=== PATIENT | male | born 1990 | race Caucasian/White ===

== ENCOUNTER 2020-07-02 20:31 | Emergency (ER) | payer BC, OTHER ==
[~2020-07-02] VITALS: Ht 182.9 cm; Wt 88.6 kg
[2020-07-02] MEDS ORDERED: FLUORESCEIN (FLUOR-I-STRIPS) 1 MG STRP ONE (20:49)
[2020-07-02] MEDS ORDERED: TETRACAINE 0.5% OPHTH SOLN 4 ML BTL (SINGLE DOSE ONLY) OP ONE (21:00)
--- NOTE | 2020-07-02 21:12 | NUR ---
visual acuity performed, with glasses pt 20/20 left, right, and bilateral
[2020-07-02] MEDS ORDERED: CEFDINIR 300 MG (OMNICEF) CAP PO ONE (21:15)
[2020-07-02] MEDS ORDERED: IBUPROFEN 800 MG (MOTRIN) TAB PO ONE (21:15)
[2020-07-02] MEDS ORDERED: TRIM/SULFAMETH 160/800 (SEPTRA DS) TAB PO ONE (21:15)
--- NOTE | 2020-07-02 21:23 | ED EENT ---
History of Present Illness General Chief Complaint: Eye Problems Stated Complaint: LT EYE SWELLING,REDNESS Nursing Triage Note: pt states eye started swelling 1 week ago, was seen in ed and given drops and a steroid. states redness went away after 2-3 days and is now back History of Present Illness Date Seen by Provider: Jul 02, 2020 Time Seen by Provider: 20:41 Initial Comments The patient is a 30-year-old male who is otherwise healthy and whose tetanus is up-to-date. He does wear contact lenses at baseline, but has not been wearing them since the onset of symptoms. 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 He presents for evaluation of 1 week of left eye irritation and conjunctival injection, with associated very mild periorbital swelling. Patient states his eye was irritated and itchy at first and then he noticed some crusting drainage at the medial canthus and on his eyelids. A few days ago he visited another emergency department where he was prescribed a steroid taper as well as an antibiotic eyedrop of some kind. He does not remember which antibiotic he was given. He used these and had remission of symptoms for a few days, but then states that they returned. He denies any associated fevers, nausea or vomiting, headache, focal weakness, numbness, tingling, neck stiffness/pain/meningismus, vision changes of any kind (endorses normal vision out of his left eye), pain with extraocular movements, limitation in extraocular movements, ear pain, nasal congestion/rhinorrhea, cough, sore throat, shortness of breath or chest pain. Patient is alert and pleasantly and appropriately interactive and in absolutely no acute distress with appropriate vital signs upon initial evaluation here in the emergency department. He has plans to see an eye doctor on Sunday in follow- up of this issue. Allergies and Home Medications Allergies Coded Allergies: No Known Drug Allergies (Unverified , 07/02/20) Patient Home Medication List Home Medication List Reviewed: Yes Review of Systems Review of Systems Constitutional: see HPI All Other Systems Reviewed Negative Unless Noted: Yes (Negative excepted noted.) Past Fepthgn-Myuuat-Vfmauo Hx Past Med/Social Hx: Reviewed Nursing Past Med/Soc Hx Patient Social History Alcohol Use: Denies Use Recreational Drug Use: No Smoking Status: Never a Smoker 2nd Hand Smoke Exposure: No Recent Foreign Travel: No Contact w/Someone Who Travel: No Recent Infectious Disease Expo: No Recent Hopitalizations: No Physical Abuse: No Sexual Abuse: No Mistreated: No Fear: No Seasonal Allergies Seasonal Allergies: No Past Medical History Surgeries: No Respiratory: No Cardiac: No Neurological: No Genitourinary: No Gastrointestinal: No Musculoskeletal: No Endocrine: No HEENT: No Cancer: No Psychosocial: No Integumentary: No Blood Disorders: No Family Medical History Reviewed Nursing Family Hx Physical Exam Vital Signs Vital Signs - First Documented 07/02/20 20:38 Temp 36.2 Pulse 92 Resp 16 B/P (MAP) 150/88 (108) Pulse Ox 97 O2 Delivery Room Air Height, Weight, BMI Height: '" Weight: lbs. oz. kg; 26.00 BMI Method: General Appearance: no apparent distress This is a younger male appearing nontoxic and in no acute distress. Head is normocephalic and atraumatic. Neck is supple and nontender and without stiffness/meningismus (patient ranges neck fully in all dimensions without discomfort or distress), oropharynx is moist. There is no posterior oropharyngeal erythema, tonsillar exudates or swelling or uvular deviation. Patient is speaking comfortably in for senses in a normal tone of voice. He is tolerating secretions appropriately. Evaluation of the eyes reveals mild generalized conjunctival injection OS with crusting drainage noted to the medial canthus and the lower eyelids, mild. There is very mild associated periorbital swelling without erythema. There is no limitation in extraocular movements. Acuities are 20/20 OD, 20/20 OS and 20/20 OU with the patient's typical corrective lenses. Tonometry reveals serial measurements of intraocular pressure on the left of 15, 18 and 20. Slit lamp examination without cell and flare and without abnormality aside from conjunctival injection on digital light inspection. On sustained examination with the slit lamp, mild small corneal abrasion noted at about the 5:00 position of the cornea. Lungs are clear to auscultation at all stations. There is a normal S1 and S2 without rubs or gallops and capillary refill is appropriate, less than 2 seconds globally. Abdomen is soft, nontender and nondistended. Skin is warm and dry without cyanosis, clubbing or edema. Psychiatrically, the patient demonstrates appropriate mood and affect and is alert. Progress/Results/Core Measures Results/Orders My Orders Orders - JOSE DHALIWAL MD Tetracaine 0.5% Ophth Blanche Sdv (Tetracai (07/02/20 21:00) Fluorescein Strips (Ratoe-S-Dpqqcr) (07/02/20 20:49) Medications Given in ED Current Medications Medications Dose Ordered Sig/Jeremias Route Start Time Stop Time Status Last Admin Dose Admin Fluorescein Sodium 1 mg STK-MED ONCE .ROUTE 07/02/20 20:49 07/02/20 20:52 DC 07/02/20 20:53 1 MG Tetracaine HCl 1 OR 2 DROPS INTO AFFEC... ONCE ONCE OP 07/02/20 21:00 07/02/20 21:01 DC 07/02/20 20:53 4 ML Vital Signs/I&O 07/02/20 20:38 Temp 36.2 Pulse 92 Resp 16 B/P (MAP) 150/88 (108) Pulse Ox 97 O2 Delivery Room Air Blood Pressure Mean: 108 Progress Progress Note : Time: 21:23 Progress Note History and examination are consistent with a fairly significant likely bacterial conjunctivitis on the left with a small area of corneal abrasion at about the 5:00 position of the cornea OS, which in context likely is a consequence of the underlying primary process as opposed to the cause; patient states he has been rubbing his eye a lot. Intraocular pressures are normal on the left. Visual acuities are appropriate. No pain with extraocular movements. Favor a mild periorbital cellulitis in association with the patient's conjun ctivitis given clinical appearance. We will escalate to oral antibiotic coverage with Bactrim and cefdinir (per UpToDate recommendations for periorbital cellulitis antibiotic coverage). We'll also prescribe moxifloxacin ophthalmic given contact lens wearer. Patient is advised not to wear his contacts until his symptoms wholly resolved and he is cleared to return to use by his ophth almologist. He is to follow-up with his personal lines agent immediately after the weekend and to return to the Emergency Department immediately if symptoms worsen or if other new symptoms of concern develop. Departure Impression Primary Impression: Corneal abrasion Qualified Codes: S05.02XA - Injury of conjunctiva and corneal abrasion without foreign body, left eye, initial encounter Additional Impressions: Conjunctivitis Qualified Codes: H10.32 - Unspecified acute conjunctivitis, left eye Periorbital cellulitis of left eye Disposition: 01 HOME, SELF-CARE Condition: Improved Departure-Patient Inst. Referrals: UNKNOWN (PCP/Family) Primary Care Physician Patient Instructions: Corneal Abrasion (DC), Conjunctivitis ([place]) (DC) Add. Discharge Instructions: Follow-up very closely with your personal lines agent immediately after the weekend as we discussed. It is important that you be seen in the office by the specialist as soon as possible. Take the oral antibiotics as prescribed until they are completely gone. Use the moxifloxacin antibiotic eyedrops as instructed as well. Take ibuprofen every 8 hours as needed for discomfort. Return to the emergency department right away with worsening symptoms of any kind or with any other new symptoms of concern. Scripts Moxifloxacin HCl (Vigamox) 3 Ml Soln 3 ML OP TID for 7 Days, #1 EA Prov: JOSE DHALIWAL MD 07/02/20 Sulfamethoxazole/Trimethoprim (Bactrim Ds Tablet) 1 Each Tablet 1 EACH PO BID for 10 Days, #20 TAB Prov: JOSE DHALIWAL MD 07/02/20 Cefdinir (Cefdinir) 300 Mg Capsule 300 MG PO BID for 10 Days, #20 CAP 0 Refills Prov: JOSE DHALIWAL MD 07/02/20 Ibuprofen (Ibuprofen) 800 Mg Tablet 800 MG PO Q8H PRN for PAIN, #30 TAB 0 Refills Prov: JOSE DHALIWAL MD 07/02/20 JOSE DHALIWAL MD Jul 02, 2020 21:23
[2020-07-02] MEDS ORDERED: SULF1TAB35 PO (21:30)
[2020-07-02] MEDS ORDERED: IBUP-1780 PO (21:30)
[2020-07-02] MEDS ORDERED: CEFD300C3 PO (21:30)
[2020-07-02] MEDS ORDERED: VIGAMOX OP (21:30)
[2020-07-02 21:32] VITALS: BP 150/88
== END 2020-07-02 21:32 | disposition home or self-care (01) ==
LOC: ER FS 20:33
DX: H18.822 Corneal disorder due to contact lens, left eye (principal); H10.9 Unspecified conjunctivitis; L03.213 Periorbital cellulitis
CPT/HCPCS: 99283

== ENCOUNTER 2022-03-06 06:54 | Emergency (ER) | payer SELFPAY ==
[~2022-03-06] VITALS: Ht 185 cm; Wt 91.0 kg
[~2022-03-06 06:54] MED LIST: CEFD300C3 PO; IBUP-1780 PO; MOXI3DRO28 OP; SULF1TAB38 PO
[2022-03-06 07:03] VITALS: BP 147/91
[2022-03-06] MEDS ORDERED: methylPREDNISolone 125 MG (Solu-MEDROL) VIAL IM ONE (07:15)
[2022-03-06] MEDS ORDERED: FAMOTIDINE 20 MG (PEPCID) TABLET PO ONE (07:15)
--- NOTE | 2022-03-06 07:25 | ED General ---
General Chief Complaint: General Problems/Pain Stated Complaint: RASH Nursing Triage Note: Patient has ambulated to ER with cc of a rash on his leg and arm. Appears to be bug bites on his legs and arms. He did take benadrl last night but he still continues to itch. Source of Information: Patient Exam Limitations: No Limitations History of Present Illness Date Seen by Provider: Mar 06, 2022 Time Seen by Provider: 07:07 Initial Comments 31-year-old male patient without history of medical problems complaining of pruritic rash since yesterday. Patient states he has spent time in the wood yesterday and removed multiple ticks. Patient states he gradually started to have severe pruritic rash since last night that getting more today in his feet, legs, back, trunk, intergluteal cleft. Patient stated he had Benadryl last night that made him sleepy but did not help for itching. Patient denies shortness of breath, fever and chills, nausea and vomiting, history of the same problem Allergies and Home Medications Allergies Coded Allergies: No Known Drug Allergies (Unverified , 07/02/20) Patient Home Medication List Home Medication List Reviewed: Yes Cefdinir (Cefdinir) 300 Mg Capsule, 300 MG PO BID Prescribed by: JOSE DHALIWAL on 07/02/202129 Hydroxyzine HCl (Hydroxyzine HCl) 25 Mg Tablet, 25 MG PO QID PRN for itching Prescribed by: Ravi green on 03/06/22728 Ibuprofen (Ibuprofen) 800 Mg Tablet, 800 MG PO Q8H PRN for PAIN Prescribed by: JOSE DHALIWAL on 07/02/202129 Methylprednisolone (Methylprednisolone Dose Pack) 4 Mg Tab.ds.pk, 4 MG PO UD Prescribed by: Ravi green on 03/06/22728 Moxifloxacin HCl (Vigamox) 3 Ml Soln, 3 ML OP TID Prescribed by: JOSE DHALIWAL on 07/02/202129 Sulfamethoxazole/Trimethoprim (Bactrim Ds Tablet) 1 Each Tablet, 1 EACH PO BID Prescribed by: JOSE DHALIWAL on 07/02/202129 Review of Systems Review of Systems Constitutional: no symptoms reported EENTM: no symptoms reported Respiratory: no symptoms reported Cardiovascular: no symptoms reported Gastrointestinal: no symptoms reported Genitourinary: no symptoms reported Musculoskeletal: no symptoms reported Skin: see HPI Psychiatric/Neurological: No Symptoms Reported Hematologic/Lymphatic: No Symptoms Reported All Other Systems Reviewed Negative Unless Noted: Yes Past Mvlmvtx-Llqskd-Dliizn Hx Patient Social History Tobacco Use?: No Use of E-Cig and/or Vaping dev: No Substance use?: No Alcohol Use?: No Seasonal Allergies Seasonal Allergies: No Past Medical History Surgeries: No Respiratory: No Cardiac: No Neurological: No Genitourinary: No Gastrointestinal: No Musculoskeletal: No Endocrine: No HEENT: No Cancer: No Psychosocial: No Integumentary: No Blood Disorders: No Physical Exam Vital Signs Vital Signs - First Documented 03/06/22 07:03 Temp 36.2 Pulse 70 Resp 18 B/P (MAP) 147/91 (109) Pulse Ox 95 O2 Delivery Room Air Capillary Refill : Height, Weight, BMI Height: '" Weight: lbs. oz. kg; 26.00 BMI Method: General Appearance: WD/WN, Mild Distress Eyes: Bilateral Eye Normal Inspection, Bilateral Eye PERRL HEENT: PERRL/EOMI Neck: Full Range of Motion, Normal Inspection Respiratory: Chest Non Tender, Lungs Clear, Normal Breath Sounds, No Accessory Muscle Use, No Respiratory Distress Cardiovascular: Regular Rate, Rhythm, No Edema, No Gallop, No JVD, No Murmur Gastrointestinal: Soft Back: No CVA Tenderness Extremity: Normal Capillary Refill, Normal Range of Motion Neurologic/Psychiatric: Alert, Oriented x3 Skin: Rash (Multiple insect bites in bilateral feet and legs, several in back and few in bilateral upper arms and chest and abdominal wall without sign of infection) Progress/Results/Core Measures Suspected Sepsis SIRS Temperature: Pulse: 70 Respiratory Rate: 18 Blood Pressure 147 /91 Mean: 109 Results/Orders My Orders Orders - RAVI GREEN MD Methylprednisolone Sod Succ (Solu-Medrol (03/06/22 07:15) Famotidine Tablet (Pepcid Tablet) (03/06/22 07:15) Medications Given in ED Current Medications Medications Dose Ordered Sig/Jeremias Route Start Time Stop Time Status Last Admin Dose Admin Famotidine 20 mg ONCE ONCE PO 03/06/22 07:15 03/06/22 07:16 DC 03/06/22 07:20 20 MG Methylprednisolone Sodium Succinate 125 mg ONCE ONCE IM 03/06/22 07:15 03/06/22 07:16 DC 03/06/22 07:20 125 MG Vital Signs/I&O 03/06/22 07:03 Temp 36.2 Pulse 70 Resp 18 B/P (MAP) 147/91 (109) Pulse Ox 95 O2 Delivery Room Air Capillary Refill : Blood Pressure Mean: 109 Progress Note : Progress Note Evaluation of patient in ER showed 31-year-old male patient with spending time outdoors and having multiple insect bites and complaining of severe itching. No respiratory complaint. Patient had Solu-Medrol IM and Pepcid in ER and advised to take Chiga rest and Pepcid [id number]. Prescription for Medrol Dosepak and hydroxyzine was given and advised to wash all of his clothes and take a sh ower. Departure Impression Primary Impression: Chigger bites Disposition: HOME, SELF-CARE Condition: Stable Departure-Patient Inst. Decision time for Depature: 07:25 Referrals: NO,LOCAL PHYSICIAN (PCP/Family) Primary Care Physician Patient Instructions: Insect Bites and Stings ED Add. Discharge Instructions: Take cold showers and wash all of your clothes and sheets Drink plenty of liquid Apply gqsx-lin-roedylw chiggerex on the affected area Take [id number] Pepcid twice daily as needed for itching Follow-up with your primary care physician or return to ER as needed All discharge instructions reviewed with patient and/or family. Voiced understanding. Scripts Hydroxyzine HCl (Hydroxyzine HCl) 25 Mg Tablet 25 MG PO QID PRN for itching, #20 TAB Prov: RAVI GREEN MD 03/06/22 Methylprednisolone (Methylprednisolone Dose Pack) 4 Mg Tab.ds.pk 4 MG PO UD for asthma for 6 Days, #21 PKG PER DOSE PACK INSTRUCTIONS Prov: RAVI GREEN MD 03/06/22 RAVI GREEN MD Mar 06, 2022 07:25
[2022-03-06] MEDS ORDERED: HYDR-700 PO (07:29)
[2022-03-06] MEDS ORDERED: METH4TAB10 PO (07:29)
== END 2022-03-06 07:35 | disposition home or self-care (01) ==
LOC: EDUNIT# 06:54 → ER FS 06:56
DX: S90.862A Insect bite (nonvenomous), left foot, initial encounter (principal); S90.861A Insect bite (nonvenomous), right foot, initial encounter; S80.862A Insect bite (nonvenomous), left lower leg, initial encounter; S80.861A Insect bite (nonvenomous), right lower leg, initial encounter; S30.860A Insect bite (nonvenomous) of lower back and pelvis, initial encounter; S40.862A Insect bite (nonvenomous) of left upper arm, initial encounter; S40.861A Insect bite (nonvenomous) of right upper arm, initial encounter; S20.369A Insect bite (nonvenomous) of unspecified front wall of thorax, initial encounter; S30.861A Insect bite (nonvenomous) of abdominal wall, initial encounter; Z28.310 Unvaccinated for COVID-19; W57.XXXA Bitten or stung by nonvenomous insect and other nonvenomous arthropods, initial encounter
CPT/HCPCS: 99284